=== PATIENT | male | born 1995 | race Caucasian/White ===

== ENCOUNTER 2023-07-05 08:38 | Outpatient (CLI) | payer BC, SELFPAY ==
--- NOTE | 2023-07-05 08:47 | ECHO_ITS ---
Patient Info Name: Eugene Brandon Age: 28 years : 1995 Gender: Male Ht: 71 in Wt: 196 lbs BSA: 2.13 m2 HR: 79 bpm BP: 147 / 88 mmHg Heart Rhythm: Sinus Rhythm Technical Quality: Good Exam Date: 07/05/2023 8:54 AM Exam Location: Echo Lab Patient Status: Outpatient Admit Date: 07/05/2023 Staff Ordering Physician: Lisa Blankenship NP Victim Advocate: Davina Johnson RDCS Attending Provider: Lisa Blankenship NP Exam Type: CA echo doppler color flow Study Info Indications R07.9 - Chest pain, unspecified R94.31 - Abnormal electrocardiogram ECG EKG Complete two-dimensional, color flow and Doppler transthoracic echocardiogram is performed. Summary 1. Complete two-dimensional, color flow and Doppler transthoracic echocardiogram is performed. 2. Left ventricular chamber dimension is normal. 3. Left ventricular systolic function is normal, estimated at 65-70%. 4. The left ventricular diastolic function is normal. 5. E/e' 6 is not elevated. 6. Left atrial chamber dimension is mildly enlarged. 7. No pulmonary hypertension, estimated pulmonary arterial systolic pressure is 26 mmHg. Left Ventricle E/e' 6 is not elevated. Left ventricular chamber dimension is normal. Left ventricular systolic function is normal, estimated at 65-70%. The left ventricular diastolic function is normal. Right Ventricle Right ventricular systolic function is normal and with normal TAPSE 2.3 cm. Right ventricular chamber dimension is normal. Left Atria Left atrial chamber dimension is mildly enlarged. Right Atria Right atrial chamber dimension is normal. Aortic Valve The aortic valve is trileaflet. There is no aortic valve stenosis. There is no aortic valve regurgitation. Pulmonic Valve There is no pulmonic regurgitation. Mitral Valve There is no mitral valve stenosis. There is no mitral valve regurgitation. Tricuspid Valve There is no tricuspid valve regurgitation. No pulmonary hypertension, estimated pulmonary arterial systolic pressure is 26 mmHg. Pericardium/Pleural There is no pericardial effusion. Inferior Vena Cava Normal inferior vena cava with >50% collapse upon inspiration consistent with normal right atrial pressure, 5 mmHg. Aorta The aortic root size at the sinus of Valsalva is normal. Left Ventricular Outflow Tract Name Value Normal LVOT 2D LVOT Diameter 2.1 cm LVOT Doppler LVOT Peak Gradient 4 mmHg LVOT Mean Gradient 2 mmHg LVOT VTI 17 cm LVOT VTI/AV VTI Ratio 0.8 LVOT Stroke Volume 61 ml LVOT CO 4.5 l/min LVOT CI 2.1 l/min/m2 Pulmonic Valve Name Value Normal RVOT Doppler RVOT Peak Gradient 3 mmHg PV Doppler PV Pe
--- NOTE | 2023-07-05 09:36 | EST_ITS ---
Patient Info Name: Eugene Brandon Age: 28 years : 1995 Gender: Male Ht: 71 in Wt: 198 lbs BSA: 2.14 m2 HR: 83 bpm BP: 122 / 76 mmHg Heart Rhythm: Sinus Rhythm Exam Date: 07/05/2023 11:05 AM Exam Location: Echo Lab Patient Status: Outpatient Admit Date: 07/05/2023 Staff Ordering Physician: Lisa Blankenship NP Attending Provider: Lisa Blankenship NP Exercise Technologist: Danita Frost CT Exercise Physician: Gary Martinez DO Exam Type: CA stress test treadmill Study Info Indications R07.89 - Other chest pain R94.31 - Abnormal electrocardiogram ECG EKG A treadmill exercise stress test was performed. Summary 1. 1. Negative Cody exercise stress test for ischemic ST changes by ECG criteria. 2. 2. Good functional capacity, achieving 12 METs of workload. 3. 3. Appropriate HR response to exercise. 4. 4. Appropriate HR recovery at 1 minute post exercise. 5. 5. No imaging with stress testing. 6. 6. Patient informed of the above results. Protocol: Cody Stress ECG Details Stage: REST Duration (min): 1 min : 2 sec Speed (mph): 0.0 Grade (%): 0 HR (bpm): 89 SBP (mmHg): 122 DBP (mmHg): 75 METS: --- Stage: REST Duration (min): 17 min : 53 sec Speed (mph): 0.0 Grade (%): 0 HR (bpm): 78 SBP (mmHg): 122 DBP (mmHg): 75 METS: --- Stage: STAGE 1 Duration (min): 1 min : 0 sec Speed (mph): 1.7 Grade (%): 10 HR (bpm): 109 SBP (mmHg): 122 DBP (mmHg): 75 METS: --- Stage: STAGE 1 Duration (min): 2 min : 0 sec Speed (mph): 1.7 Grade (%): 10 HR (bpm): 111 SBP (mmHg): 122 DBP (mmHg): 75 METS: --- Stage: STAGE 1 Duration (min): 3 min : 0 sec Speed (mph): 1.7 Grade (%): 10 HR (bpm): 110 SBP (mmHg): 144 DBP (mmHg): 80 METS: --- Stage: STAGE 2 Duration (min): 1 min : 0 sec Speed (mph): 2.5 Grade (%): 12 HR (bpm): 120 SBP (mmHg): 144 DBP (mmHg): 80 METS: --- Stage: STAGE 2 Duration (min): 2 min : 0 sec Speed (mph): 2.5 Grade (%): 12 HR (bpm): 124 SBP (mmHg): 133 DBP (mmHg): 70 METS: --- Stage: STAGE 2 Duration (min): 3 min : 0 sec Speed (mph): 2.5 Grade (%): 12 HR (bpm): 125 SBP (mmHg): 133 DBP (mmHg): 70 METS: --- Stage: STAGE 3 Duration (min): 1 min : 0 sec Speed (mph): 3.4 Grade (%): 14 HR (bpm): 143 SBP (mmHg): 149 DBP (mmHg): 74 METS: --- Stage: STAGE 3 Duration (min): 2 min : 0 sec Speed (mph): 3.4 Grade (%): 14 HR (bpm): 152 SBP (mmHg): 149 DBP (mmHg): 74 METS: --- Stage: STAGE 3 Duration (min): 3 min : 0 sec Speed (mph): 3.4 Grade (%): 14 HR (bpm): 164 SBP (mmHg): 171 DBP (mmHg): 61 METS: --- Stage: STAGE 4 Duration (min): 1 min : 0 sec Speed (mph): 4.2 Grade (%): 16 HR (bpm): 181 SBP (mmHg): 171 DBP (mmHg): 61 METS: --- Stage: STAGE 4 Duration (min): 1 min : 0 sec Speed (mph): 4.2 Grade (%): 16 HR (bpm):
== END 2023-07-05 08:39 | disposition home or self-care (01) ==
LOC: ANHCARD 08:39
PROVIDERS: PCP Nurse Practitioner Family; Visit Provider Nurse Practitioner Family
DX: R94.31 Abnormal electrocardiogram [ECG] [EKG] (principal); R07.9 Chest pain, unspecified; I51.7 Cardiomegaly
CPT/HCPCS: 93017; 93306

== ENCOUNTER 2023-07-26 12:30 | Outpatient (RCR) | payer BC, SELFPAY ==
--- NOTE | 2023-06-24 15:13 | OPREHPOC ---
Outpatient Therapy Plan of Care This is a Multidisciplinary Plan of Care that may contain components documented by all disciplines (PT, OT, and ST.) PT Problem 1 PT Problem #1 Knowledge Deficit PT Goal 1 Goal Pt to be IND with issued HEP Target Visit 4 PT Problem 2 PT Problem #2 Pain PT Goal 1 Goal Pt to report neck pain no greater than 3/10 in the last week Target Visit 4 PT Goal 2 Goal Pt to report 75% improvement in overall symptoms. Target Visit 4 PT Problem 3 PT Problem #3 Impaired Sensation PT Goal 1 Goal Pt to decline radicular symptoms in the last week. Target Visit 4 PT Goal 2 Goal Pt to decline headaches in the last month. Target Visit 4 PT Problem 4 PT Problem #4 Pain PT Goal 1 Goal Pt to report no increase in neck pain after work.
--- NOTE | 2023-06-24 15:13 | PTOPEVAL1 ---
Assessment and note entered by Milton Dee, PT, DPT Evaluation Information Assessment Status Evaluation Diagnosis dorsalgia Onset 2-3 months Subjective Information Pt states when he moves his head down, he will get a pain that shoots down the back of his neck, into his upper back, and into the shoulder. If he has a long day at work he will get pain at night as well. He reports about 1 headache a week. He is a heavy repairer, he is a L handed. Reported Pain Level Pain Score 1: Self Report Assessment PT Clinical Summary Eugene presents to therapy today for his initial evaluation with a diagnosis of back pain. Today he demonstrates good active and passive cervical ROM in all directions. He demonstrates tenderness to palpation with suboccipital palpation and with cervical side glides. His overhead reaching tolerance is decreased d/t increase pain with prolonged movements. Skilled therapy services are indicated to improved pain reports, point tenderness, and to return to PLOF. Plan of Care Interventions Electrical Stimulation,Hot Pack/Cold Pack,Manual Therapy,Mechanical Traction,Neuro Re-education, Patient/Caregiver Educati,Therapeutic Activities, Therapeutic Exercise PT Services Indicated Yes Treatment Frequency and 1x/wk for 4 visits Duration These treatments will address the objective and functional deficits as defined above. The patient will be advanced safely and appropriately in order for the patient to progress towards his/her prior level of function. Additional exercises will be introduced and as well as a comprehensive home exercise program upon discharge, if needed, ?to ensure carryover of functional gains achieved in the clinic. This treatment plan has been reviewed and agreement upon by the patient.
--- NOTE | 2023-07-12 09:49 | PCPTNOTE ---
Patient called & cancelled scheduled appointment this date due to being ill.
--- NOTE | 2023-07-26 16:23 | PTOPDC ---
Assessment and note entered by Milton Dee, PT, DPT Evaluation Information Assessment Status Discharge Diagnosis dorsalgia Onset 2-3 months Subjective Information Pt states overall he is doing really well. He states he has only used one pain patch in the last 2 weeks. He reports the pain he came in with is 100% better. He states he tweaked his back but this has eased up in the last day with some stretching. Reported Pain Level Pain Score 0: Self Report Assessment PT Clinical Summary Eugene presents to therapy today for his progress report following 4 visits of therapy to treat his a diagnosis of back pain. Today he demonstrates improved lumbar and cervical ROM without an increase in pain, improved body mechanics, and improved core strength. He has met all of this therapy goals and no longer requires skilled services. He will be discharged at this time.
== END 2023-07-29 09:07 | disposition home or self-care (01) ==
LOC: ANHGOSHPT 12:30
PROVIDERS: PCP Nurse Practitioner Family; Visit Provider Nurse Practitioner Family
DX: M54.9 Dorsalgia, unspecified (principal); T14.8XXD Other injury of unspecified body region, subsequent encounter
CPT/HCPCS: 97014; 97110; 97140; 97161; 97530; G0283